=== PATIENT | male | born 1955 | race Caucasian/White ===

== ENCOUNTER → 2016-08-01 | Outpatient (CLI) | payer BC ==
[~2016-08-01] MED LIST: ADULT LOW DOSE81 M1 PO; AMCINONIDE TP; ASPIRIN EC325 MG PO; CATAPRES0.1 MG PO; DIOVAN HCT 81 TABLET PO; SINGULAIR10 MG PO; [UNRECOGNIZED DRUG - REMARK]; [UNRECOGNIZED DRUG - REMARK]; [UNRECOGNIZED DRUG - REMARK]
== END | disposition home or self-care (01) ==
LOC: RAD 09:00
DX: R60.0 Localized edema (principal)
CPT/HCPCS: 93971

== ENCOUNTER 2017-07-16 17:40 | Emergency (ER) | payer BC ==
[~2017-07-16] VITALS: Ht 165.1 cm; Wt 118.8 kg
[2017-07-16] MEDS ORDERED: PERCOCET 5/31 TABLET PO (19:16)
[2017-07-16 19:48] VITALS: BP 148/77
== END 2017-07-16 19:50 | disposition home or self-care (01) ==
LOC: EME 17:40
DX: S83.91XA Sprain of unspecified site of right knee, initial encounter (principal); I10 Essential (primary) hypertension
CPT/HCPCS: 73564; 99281; 99284